=== PATIENT | male | born 1935 | race Caucasian/White ===

== ENCOUNTER 2021-04-05 13:16 | Emergency (ER) | payer OTHER ==
[~2021-04-05] VITALS: Ht 190.5 cm; Wt 73.9 kg
[2021-04-05] MEDS ORDERED: GLYBURIDE PO (13:20)
[2021-04-05] MEDS ORDERED: METFORMIN PO (13:20)
--- NOTE | 2021-04-05 13:20 | NUR ---
Patient is AOx3 but can no recall the exact dosages of his home medicines at this time.
[2021-04-05 13:58] LABS: ABG BASE EXCESS 1.2 mmol/L; ABG HCO3 25.5 mmol/L; ABG PCO2 39.4 mmHg (35.0-45.0); ABG PH 7.429 (7.350-7.450); ABG PO2 40.9 mmHg (75.0-100.0); ABG SITE LEFT BRACHIAL; ABG TOTAL HEMOGLOBIN 13.2 G/dL (13.5-18.0); COHb 0.7 % (0.5-1.5); MetHb 0.2 % (0.0-1.5); O2Hb 74.5 % (94.0-97.0)
[2021-04-05 14:10] LABS: HEMATOCRIT 38.3 % (36.7-47.1); MEAN CORPUSCULAR HEMOGLOBIN 31.9 uug (23.8-33.4); MEAN CORPUSCULAR VOLUME 91.1 fL (73.0-96.2); PLATELET COUNT (AUTO) 215 K/uL (152-348)
[2021-04-05 14:17] LABS: CARBON DIOXIDE 27 mmol/L (21-32); CHLORIDE 97 mmol/L (98-107); CREATININE 1.3 mg/dL (0.6-1.3); UREA NITROGEN, BLOOD 12 mg/dL (7-18)
[2021-04-05 14:23] LABS: ALANINE AMINOTRANSFERASE 25 U/L (16-63); ALKALINE PHOSPHATASE 96 U/L (50-136); ASPARTATE AMINOTRANSFERASE 12 U/L (15-37); BILIRUBIN,TOTAL 0.7 mg/dL (0.2-1.0); GLUCOSE 430 mg/dL (74-106)
[2021-04-05] MEDS ORDERED: IV NORMAL SALINE 500 ML BAG IV ONE (14:30)
[2021-04-05] MEDS ORDERED: METFORMIN HCL 500 MG TABLET PO ONE (14:45)
[2021-04-05] MEDS ORDERED: METFORMIN HCL 500 MG TABLET ONE (15:02)
--- NOTE | 2021-04-05 16:37 | NUR ---
Removed IV intact, site benign, bandaged. Gave pt d/c instructions, pt and verbalized understanding.
== END 2021-04-05 16:35 | disposition home or self-care (01) ==
LOC: ER 13:25
DX: Z04.1 Encounter for examination and observation following transport accident (principal); E11.65 Type 2 diabetes mellitus with hyperglycemia; Z79.84 Long term (current) use of oral hypoglycemic drugs
CPT/HCPCS: 36415; 36600; 85025; A4663; J7030